=== PATIENT | female | born 1980 | race Caucasian/White ===

== ENCOUNTER → 2021-10-18 | Outpatient (CLI) | payer SELFPAY ==
--- NOTE | 2021-10-19 08:32 | KCIC ---
EXAM: ULTRASOUND PELVIS INDICATION: Reason: PELVIC PAIN x6 MONTHS RT>LT / Spl. Instructions: / History: . Last menstrual pe riod was 10/06/2021. COMPARISON: None available. TECHNIQUE: Transabdominal sonography was performed. FINDINGS: The uterus measures 13.7 x 6.5 x 5.5 cm. The endometrium measures 1 cm. Hypoechoic masses are seen, measuring up to 1.8 cm, within the myometrium anteriorly, likely fibroids. The right ovary measures 3.1 x 2.7 x 3.5 cm. The left ovary measures 2.1 x 2.6 x 2 cm. Flow seen to both ovaries. There is no free fluid. IMPRESSION: 1. Small hypoechoic masses within the uterus likely uterine fibroids. Electronically signed by: Fan Huff MD (10/19/2021 8:30 AM) [id number]
== END ==
LOC: KCIC US 14:26
PROVIDERS: ATTEND Nurse Practitioner Family
DX: N85.8 Other specified noninflammatory disorders of uterus (principal)
CPT/HCPCS: 76856

== ENCOUNTER → 2022-02-09 | Outpatient (CLI) | payer OTHER ==
[~2022-02-09] MED LIST: ASCO1TAB17 PO; BIOT25006 PO; LISI10TA16 PO; MULT-245 PO
--- NOTE | 2022-02-09 13:46 | EKG ---
[facility] [address] [place] [address] Test Date: 2022-02-09 Test Time: 13:32:54 Pat Name: YAMILKA OLIVO Department: Room: Gender: F Commercial Insurance Underwriter: : 1980 Requested By: JAIDEN BENAVIDEZ Order Number: [id number] Reading MD: Veto Mckeon MD Measurements Intervals Graham Rate: 87 P: 44 MT: 154 QRS: 15 QRSD: 84 T: 23 QT: 366 QTc: 446 Interpretive Statements SINUS RHYTHM Electronically Signed On 02-13-2022 6:53:18 CDT by Veto Mckeon MD
[2022-02-09 13:47] LABS: BASO # 0.1 x10^3/uL (0.0-0.2); BASO % 1 % (0-3); EOS # 0.1 x10^3/uL (0.0-0.7); EOS % 2 % (0-3); HEMATOCRIT 37.9 % (36.0-47.0); HEMOGLOBIN 12.2 g/dL (12.0-15.5); LYMPH # 2.2 x10^3/uL (1.0-4.8); LYMPH % 29 % (24-48); MEAN CORPUSCULAR HEMOGLOBIN 27 pg (25-35); MEAN CORPUSCULAR HGB CONC 32 g/dL (31-37); MEAN CORPUSCULAR VOLUME 85 fL (79-100); MONO # 0.5 x10^3/uL (0.0-1.1); MONO % 7 % (0-9); NEUT # 4.7 x10^3/uL (1.8-7.7); NEUT % 62 % (31-73); PLATELET COUNT 211 x10^3/uL (140-400); RED BLOOD COUNT 4.49 x10^6/uL (3.50-5.40); RED CELL DISTRIBUTION WIDTH 13.4 % (11.5-14.5); WHITE BLOOD COUNT 7.5 x10^3/uL (4.0-11.0)
[2022-02-09 14:06] LABS: ALBUMIN 3.8 g/dL (3.4-5.0); ALBUMIN/GLOBULIN RATIO 1.1 (1.0-1.7); CALCIUM 8.6 mg/dL (8.5-10.1); CREATININE 0.9 mg/dL (0.6-1.0); GFR 68.3; POTASSIUM 3.7 mmol/L (3.5-5.1); TOTAL BILIRUBIN 0.3 mg/dL (0.2-1.0); TOTAL PROTEIN 7.4 g/dL (6.4-8.2)
--- NOTE | 2022-02-09 14:36 | RAD ---
XR CHEST 2V History: Preoperative examination. Comparison: None. Findings: No consolidation or pleural effusion. Normal heart size. No pneumothorax. Impression: 1. No acute cardiopulmonary process. Electronically signed by: Rafael Dela Cruz DO (02/09/2022 2:34 PM) [id number]
[2022-02-09 15:01] LABS: BACTERIA,URINE 0 /HPF (0-FEW); RBC,URINE 0 /HPF (0-2); WBC,URINE 0 /HPF (0-4)
== END ==
LOC: SURGPAT 09:54
PROVIDERS: ATTEND Obstetrics & Gynecology
DX: Z01.818 Encounter for other preprocedural examination (principal); I10 Essential (primary) hypertension
CPT/HCPCS: 36415; 71046; 80053; 81001; 85025; 93005

== ENCOUNTER 2022-02-14 06:06 | Observation (INO) | payer OTHER ==
[2022-02-12 13:59] VITALS: BP 143/70
[~2022-02-14] VITALS: Ht 162.6 cm; Wt 78.3 kg
[2022-02-14] VITALS (10 sets, daily range): BP systolic 116–162; BP diastolic 72–88
[~2022-02-14 06:06] MED LIST changes: +CLINDAMYCIN 900MG PREMIX 50 ML IV PRN; +HYDROmorphone 2 MG/ML INJ. IVP PRN; +IV RINGERS,LACTATED 1000ML 1,000 ML IV SCH; +MORPHINE SULFATE 2 MG/ML INJ. IVP PRN; +PROCHLORPERAZINE 10 MG/2 ML VIAL. IVP PRN; +fentaNYL PF VIAL 100 MCG/2 ML VIAL IVP PRN
[2022-02-14] MEDS ORDERED: fentaNYL PF VIAL 100 MCG/2 ML VIAL ONE (06:54)
[2022-02-14] MEDS ORDERED: DEXAMETHASONE SOD PHOS 4 MG/ML VIAL ONE (06:54)
[2022-02-14] MEDS ORDERED: MIDAZOLAM HCL/PF 2 MG/2 ML VIAL. ONE (06:54)
[2022-02-14] MEDS ORDERED: PROPOFOL 10 MG/ML (20ML) VIAL. IV ONE (06:54)
[2022-02-14] MEDS ORDERED: LIDOCAINE 2% PF 5 ML VIAL. ONE (06:54)
[2022-02-14] MEDS ORDERED: ONDANSETRON PF 4 MG/2 ML VIAL. ONE (06:54)
[2022-02-14] MEDS ORDERED: SEVOFLURANE > 120 MINUTES. IH ONE (06:54)
[2022-02-14] MEDS ORDERED: ROCURONIUM 50 MG/5 ML VIAL. ONE (06:55)
[2022-02-14] MEDS ORDERED: NEOSTIGMINE METHYLSULFATE 5 MG/5 ML SYRINGE. ONE (06:55)
[2022-02-14] MEDS ORDERED: GLYCOPYRROLATE 1 MG/5 ML VIAL. ONE (06:55)
[2022-02-14] MEDS ORDERED: INDIGOTINDISULFONATE SODIUM 40 MG/5 ML AMPUL. ONE (07:25)
[2022-02-14] MEDS ORDERED: BUPIVACAINE-EPI 0.25%-1:200000 MPF 30 ML VIAL. ONE (07:25)
[2022-02-14] MEDS ORDERED: ESTROGENS, CONJ VAGINAL CREAM 30GM TUBE. ONE (07:25)
[2022-02-14] MEDS ORDERED: diphenhydrAMINE 50 MG/ML VIAL ONE (08:00)
[2022-02-14] MEDS ORDERED: KETAMINE HCL IN NACL, ISO-OSM 50 MG/5 ML SYRINGE ONE (08:14)
[2022-02-14] MEDS ORDERED: HYDROmorphone 2 MG/ML INJ. ONE (09:33)
[2022-02-14] MEDS ORDERED: KETOROLAC 30 MG/ML VIAL. ONE (09:36)
[2022-02-14] MEDS ORDERED: CALCIUM CARBONATE 500 MG TAB.CHEW PO PRN (10:00)
[2022-02-14] MEDS ORDERED: ONDANSETRON PF 4 MG/2 ML VIAL. IV PRN (10:00)
[2022-02-14] MEDS ORDERED: diphenhydrAMINE 50 MG/ML VIAL IV PRN (10:00)
[2022-02-14] MEDS ORDERED: NALOXONE 0.4 MG/ML VIAL. IV PRN (10:00)
[2022-02-14] MEDS ORDERED: MAGNESIUM HYDROXIDE 2,400 MG/30 ML ORAL.SUSP. PO PRN (10:00)
[2022-02-14] MEDS ORDERED: SIMETHICONE 80 MG TAB.CHEW PO PRN (10:00)
[2022-02-14] MEDS ORDERED: LACTULOSE 20 GM/30 ML SOLUTION. PO PRN (10:00)
[2022-02-14] MEDS ORDERED: 0.9 % SODIUM CHLORIDE 10 ML DISP.SYRIN. IV PRN (10:00)
[2022-02-14] MEDS ORDERED: ZOLPIDEM 5 MG TABLET. PO PRN (10:00)
[2022-02-14] MEDS ORDERED: MAG HYDROX/ALUMINUM HYD/SIMETH 30 ML ORAL.SUSP PO PRN (10:00)
[2022-02-14] MEDS ORDERED: diphenhydrAMINE HCL 25 MG CAPSULE PO PRN (10:00)
--- NOTE | 2022-02-14 10:10 | PDOC4 ---
BRIEF OPERATIVE NOTE Date: Feb 14, 2022 Pre-Op Diagnosis menorrhagia, enlarged fibroid uterus, pelvic pain on right side Post-Op Diagnosis same Procedure Performed LAVH/right ooph (prior salpingectomy on both sides) Surgeon Dr. Kaylyn Carmona Objective C Developer PEPE Youssef Anesthesiologist Dr. Vasquez Anesthesia Type: General Blood Loss 100cc IV Fluid 1200cc Urine Output 100cc clear via barone Specimens Obtained cervix, uterus, fibroid, right ovary Findings enlarged fibroid uterus, fibroid off left side of uterus, normal left ovary, cyst on right ovary, normal appendix, grossly normal bowel Complications none Operative Note [id number] KAYLYN CARMONA MD Feb 14, 2022 10:10
--- NOTE | 2022-02-14 11:22 | OP ---
DATE OF SURGERY: 02/14/2022 PREOPERATIVE DIAGNOSES: Enlarged fibroid uterus, menorrhagia and pelvic pain on the right side. POSTOPERATIVE DIAGNOSES: Enlarged fibroid uterus, menorrhagia and pelvic pain on the right side. PROCEDURE: Laparoscopic-assisted vaginal hysterectomy, right oophorectomy. She had had a prior salpingectomy with her tubal on both sides. SURGEON: Kaylyn Carmona MD PACKING LINE WORKER: PEPE Jara. ANESTHESIOLOGIST: Dr. Vasquez. ANESTHESIA: General. BLOOD LOSS: 100 mL. URINE OUTPUT: 100 mL clear via Contreras catheter. IV FLUIDS: 1200 mL of crystalloid. SPECIMENS: Cervix, uterus, fibroid, right ovary. FINDINGS: An enlarged fibroid uterus, a fibroid coming off the left side of the uterus, normal left ovary, no tubes on either side, cyst on the right ovary, grossly normal appendix and bowel. COMPLICATIONS: None. No significant adhesive disease. COMPLICATIONS: None. DESCRIPTION OF PROCEDURE: This patient was taken to the operating room where general anesthesia was placed. The patient was placed in dorsal lithotomy position in [facility]. The patient's abdomen and vagina were both prepped and draped in the normal sterile fashion and a Contreras catheter had been inserted under sterile technique. Upon my arrival, a timeout was performed. Once everyone agreed on the patient, the site, the procedure, the antibiotics, the procedure was initiated. A bivalve speculum was placed in the patient's vagina. A single-tooth tenaculum was used to grasp the anterior lip of the cervix. A 10 mL of local 0.25% with epinephrine was placed in the cervix circumferentially for both hemodissection and hemostatic purposes later. The Valtchev uterine manipulator was placed through the endocervical os, locked on the single tooth tenaculum and the bivalve speculum was then removed. Top gloves were discarded and changed. Attention was then turned to the abdomen where a supraumbilical skin incision was made with the scalpel, a curved Amanda was used to dissect through the subcuticular layer to the fascia. The 5 mm Visiport was used to directly enter the abdominal cavity. Opening patient pressure was 2-3 mmHg. Carbon dioxide gas was used to then appropriately insufflate the abdominal cavity to maintain a pressure of 15 mmHg. Overhead lights were dimmed and the patient was placed in Trendelenburg position. At this point, there was no significant adhesive disease, so after transilluminating the abdominal wall, finding an area clear of any vasculature, making a small incision, right and left lower quadrant ports were placed under direct visualization, 4 to 5 mL of air was placed in the trocar cuff. The camera was moved laterally to look at the umbilical port, make sure it was in and it was and it was also insufflated with the 4-5 mL of air. Camera was moved back to the midline. No tubes were there. She must have had a prior salpingectomy as her form of tubal. Right ovary was elevated. The ureter could be seen coursing low in the pelvis, right ovary had a small cyst on it. The patient did want it out, so, crossing the right infundibulopelvic ligament, cauterizing and cutting it, going through the right round ligament and then the left side, she wished to keep the ovary as it looked good, so we crossed the left round ligament first and then the left uterosacral leaving the normal left ovary and again the ureter could be seen, peristalsing low in the pelvis with the laparoscope, so, crossing the left uteroovarian pedicle leaving the normal left ovary per patient request. The bladder flap was elevated with a curved [place] grasper and the monopolar hook was used to go across and create the bladder flap sharply. It did come down very nicely, getting the uterine vessels on the left. There was a fibroid right there, so I had to go inside the fibroid and hugged the uterus, so the fibroid was outside, but it peeled right out, I placed it in the posterior cul-de-sac, so we could take it out later and then right side, again, the ovary had been taken on the right per patient request crossing the right round ligament and then going down and meeting that bladder flap anteriorly, making sure it was down, getting the vessels on the right side as well. The uterus was blanched. It was clear posteriorly of any adhesions. We were down and completely on the left side down to the uterosacral, going posteriorly and hugging the posterior uterus through the cardinal and broad ligaments on the right side as well. Once this was done, all instruments were removed from the abdomen and attention was turned vaginally. Overhead lights were placed back on. The patient was taken out of Trendelenburg. The single tooth and Valtchev were removed. A short weighted speculum was placed in the patient's vagina. Thyroid Teodora clamps were placed on the anterior and posterior lips of the cervix respectively. A scalpel was used to make a circumferential incision in the cervix. An open Ray-Shwetha 4 x 4 was used to gently push up the anterior bladder peritoneum. The anterior cul-de-sac was digitally and bluntly entered. The 4 x 4 was removed and the curved Kanab was placed in the anterior cul-de-sac. The cervix was elevated and the posterior cul-de-sac was sharply entered with curved Arcos scissors. A #0 Vicryl stitch was used to secure the posterior peritoneum here to the vaginal cuff, was tagged with a curved Amanda clamp. The needle was cut and passed off. The short weighted speculum was removed and replaced with the long weighted Ace speculum in the posterior cul-de-sac. Curved Dinora clamps x 2 were placed on the left uterosacral ligament where they were doubly clamped with curved Heaneys, cut with curved Arcos scissors and suture ligated x 2 with 0 Vicryl. Second one was taken through the vaginal cuff, securing uterosacral ligament to the vaginal cuff, tagging it with a straight Amanda clamp and cutting and passing the needle off. This was done exactly the same on the right side, double clamping the uterosacrals with curved Dinora's, cutting with curved Arcos scissors, suture ligating x 2 with 0 Vicryl, taking the second one through the vaginal cuff, tagging it with a straight Amanda clamp and cutting and passing the needle off. On the left side, we were much lower. I was able to get the right angle clamp around the remaining pedicle and the vaginal LigaSure was used to cauterize and cut the remaining pedicle and it was completely free. I took another bite on the patient's right side with the vaginal LigaSure and then I was able to get the curved right angle clamp around the remaining pedicle and the vaginal LigaSure was used to cauterize and cut it as well. Once everything was done, cervix, uterus, right ovary were delivered in total and passed off for permanent pathology. Single fibroid that was taken off the left side was found in the posterior cul-de-sac. It was also passed off and sent with the specimen. A sponge stick was used to examine the pedicles. There was some slight bleeding from the left side, it was grasped with a burlisher and going behind it, cauterizing with the vaginal LigaSure with excellent results. There was no active bleeding from any of the cuff sites anymore. I did put a couple of interrupted stitches in the posterior cuff for hemostasis and then it was dry, so I removed the long weighted Ace speculum, was removed and the short weighted vaginal speculum was replaced in the vagina. Thai and a long Allis was used to grasp the anterior bladder peritoneum and 2-0 Vicryl was taken through the anterior bladder peritoneum, left uterosacral ligament, posterior peritoneum and right uterosacral ligament, thus closing the peritoneum in a pursestring like fashion. Once this was done, the right and left uterosacral tags were clipped. The cuff was closed in an anterior to posterior running locked fashion with a full length 2-0 Vicryl and tied to the posterior cuff tag. The cuff was hemostatic and looked great. All instruments were correct x 2 by OR personnel before going above. All gloves were discarded and changed and attention was turned back above for a second look. Overhead lights were dimmed. The patient was placed back in Trendelenburg. Copious irrigation revealed hemostasis. Tisseel was placed over the pedicles. The 4-5 mL of air was taken out of the trocar cuff, reexamining it after placing Tisseel. It remained hemostatic, so the right and left lower quadrant ports were taken out under direct visualization. Gas was released from that umbilical port. All 3 port sites were closed with 4-0 nylon and injected with local at the end. The patient tolerated the procedure well. There were no complications. All counts were correct by OR personnel. The patient was awakened from anesthesia and brought to recovery room in stable condition. CL/RADHA DR: Hannah TID: [id number]
[2022-02-14] MEDS: MORPHINE SULFATE 2 MG/ML INJ. IV PRN ×2 (12:50→23:23)
[2022-02-14] MEDS: HYDROcodone/APAP 5/325MG 1 TAB TABLET PO PRN ×2 (15:06→15:29)
[2022-02-14] MEDS: oxyCODONE/APAP 5/325 1 TAB TABLET PO PRN (20:32)
--- NOTE | 2022-02-14 23:20 | NUR ---
Pt complains of breakthrough pain, that feels like pulling or burning. Pain is rated at a 9. She also complains about an increase in bleeding when she went to the bathroom to urinate. Patient flushed toilet so RN did not observe. No blood on pad. Meds administered for pain.
[2022-02-15 00:46] VITALS: BP 138/83
[2022-02-15] MEDS: oxyCODONE/APAP 5/325 1 TAB TABLET PO PRN ×5 (00:50→18:41)
[2022-02-15 05:57] VITALS: BP 130/76
[2022-02-15 08:00] VITALS: BP 98/61
[2022-02-15 08:02] LABS: HEMATOCRIT 34.5 % (36.0-47.0); HEMOGLOBIN 11.1 g/dL (12.0-15.5); RED BLOOD COUNT 4.06 x10^6/uL (3.50-5.40); RED CELL DISTRIBUTION WIDTH 13.5 % (11.5-14.5); WHITE BLOOD COUNT 10.6 x10^3/uL (4.0-11.0)
[2022-02-15 08:31] LABS: CALCIUM 8.4 mg/dL (8.5-10.1); CREATININE 0.7 mg/dL (0.6-1.0); GFR 91.3; POTASSIUM 3.9 mmol/L (3.5-5.1)
--- NOTE | 2022-02-15 10:03 | PDOC3 ---
Discharge Summary Visit Information Date of Admission: Feb 14, 2022 Date of Discharge: Feb 15, 2022 Final Diagnosis enlarged fibroid uterus, menorrhagia Brief Hospital Course Allergies Allergies Coded Allergies Type Severity Reaction Last Updated Verified Penicillins Allergy Intermediate Rash 02/14/22 Yes Vital Signs Vital Signs Date Time Temp Pulse Resp B/P (MAP) Pulse Ox O2 Delivery O2 Flow Rate FiO2 02/15/22 08:00 97.8 78 18 98/61 (73) 100 Room Air 97.8 02/14/22 10:15 6.0 Lab Results Laboratory Tests Test 02/14/22 06:22 02/15/22 07:40 Bedside Urine HCG, Qualitative Hcg negative (Negative) White Blood Count 10.6 x10^3/uL (4.0-11.0) Red Blood Count 4.06 x10^6/uL (3.50-5.40) Hemoglobin 11.1 g/dL (12.0-15.5) Hematocrit 34.5 % (36.0-47.0) Mean Corpuscular Volume 85 fL (79-100) Mean Corpuscular Hemoglobin 27 pg (25-35) Mean Corpuscular Hemoglobin Concent 32 g/dL (31-37) Red Cell Distribution Width 13.5 % (11.5-14.5) Platelet Count 200 x10^3/uL (140-400) Sodium Level 140 mmol/L (136-145) Potassium Level 3.9 mmol/L (3.5-5.1) Chloride Level 103 mmol/L (98-107) Carbon Dioxide Level 29 mmol/L (21-32) Anion Gap 8 (6-14) Blood Urea Nitrogen 9 mg/dL (7-20) Creatinine 0.7 mg/dL (0.6-1.0) Estimated GFR (Cockcroft-Gault) 91.3 Glucose Level 108 mg/dL (70-99) Calcium Level 8.4 mg/dL (8.5-10.1) Laboratory Tests Test 02/15/22 07:40 White Blood Count 10.6 x10^3/uL (4.0-11.0) Red Blood Count 4.06 x10^6/uL (3.50-5.40) Hemoglobin 11.1 g/dL (12.0-15.5) Hematocrit 34.5 % (36.0-47.0) Mean Corpuscular Volume 85 fL (79-100) Mean Corpuscular Hemoglobin 27 pg (25-35) Mean Corpuscular Hemoglobin Concent 32 g/dL (31-37) Red Cell Distribution Width 13.5 % (11.5-14.5) Platelet Count 200 x10^3/uL (140-400) Sodium Level 140 mmol/L (136-145) Potassium Level 3.9 mmol/L (3.5-5.1) Chloride Level 103 mmol/L (98-107) Carbon Dioxide Level 29 mmol/L (21-32) Anion Gap 8 (6-14) Blood Urea Nitrogen 9 mg/dL (7-20) Creatinine 0.7 mg/dL (0.6-1.0) Estimated GFR (Cockcroft-Gault) 91.3 Glucose Level 108 mg/dL (70-99) Calcium Level 8.4 mg/dL (8.5-10.1) Brief Hospital Course Ms. Mena is a 41 old female who presented with menorrhagia and enlarged fib roid uterus. She underwent LAVH/RSO yesterday without complications. She has had an unremarkable postoperative course. she is voiding without catheter, tolerating PO, ambulating well and desiring to go home. Assessment Assessment POD#1 s/p LAVH/RSO Routine PO care d/c to home later today NPV x 6 weeks light/limited activity x 2 wks keep scheduled follow up already has pain meds filled at home NO driving while on narcotics or for first week at home at least ok for OTC ibuprofen as needed also if no contraindication call or return sooner for any other questions or concerns not limited to but including pain unrelieved with pain meds, increased or unexplained vb or T>100.4 Discharge Information Condition at Discharge: Stable Follow Up: Weeks Disposition/Orders: D/C to Home Scheduled Ascorbic Acid/Elderberry Fruit (Elderberry-Vit C 50-100 mg Chw) 1 Each Tab.chew, 1 EACH PO DAILY for , (Reported) Entered as Reported by: Davide Lorenzana on 02/09/22 1160 Last Taken: Unknown Dose on 02/07/22 Last Action: Last Taken Edited on 02/14/22 0626 by Davide Lorenzana Biotin (Biotin) 2,500 Mcg Capsule, 1 CAP PO DAILY for for 30 Days, #30 Ref 0 (Reported) Entered as Reported by: Davide Lorenzana on 02/09/221352 Last Taken: Unknown Dose on 02/07/22 Last Action: Last Taken Edited on 02/14/22625 by Davide Lorenzana Lisinopril (Lisinopril) 10 Mg Tablet, 10 MG PO DAILY for FOR HYPERTENSION, #30 Ref 0 (Reported) Entered as Reported by: Davide Lorenzana on 02/09/221352 Last Taken: Unknown Dose on 02/13/22 Last Action: Last Taken Edited on 02/14/22625 by Davide Lorenzana Multivitamin (Multi Vitamin Daily) 1 Each Tablet, 1 TAB PO DAILY for for 30 Days, #30 Ref 0 (Reported) Entered as Reported by: Davide Lorenzana on 02/09/221352 Last Taken: Unknown Dose on 02/07/22 Last Action: Last Taken Edited on 02/14/22625 by Davide Lorenzana Justicifation of Admission Dx: Justifications for Admission: Justification of Admission Dx: Yes JAIDEN BENAVIDEZ MD Feb 15, 2022 10:03
--- NOTE | 2022-02-15 10:05 | PDOC ---
SURGICAL PROGRESS NOTE DATE: 02/15/22 TIME: 10:04 Subjective Moving around slowly, some gas pains in RUQ, scant VB today, voiding without catheter and tolerating PO Vital Signs Vital Signs Date Time Temp Pulse Resp B/P (MAP) Pulse Ox O2 Delivery O2 Flow Rate FiO2 02/15/22 08:00 97.8 78 18 98/61 (73) 100 Room Air 97.8 02/14/22 10:15 6.0 I&O Intake and Output0 02/15/22 07:00 Intake Total 1550 ml Output Total 300 ml Balance 1250 ml Intake IV Total 1550 ml Output Urine Total 200 ml Estimated Blood Loss 100 ml # Voids 1 PATIENT HAS A ARMENDARIZ: No General: Alert, Oriented X3, Cooperative, No acute distress HEENT: Atraumatic Heart: Regular rate Abdomen: Soft, No tenderness, Other (port sites c/d/i) Extremities: No clubbing, No cyanosis, No edema, No tenderness/swelling Skin: No rashes, No breakdown Neuro: Normal speech Psych/Mental Status: Mental status NL, Mood NL Labs Laboratory Tests Test 02/14/22 06:22 02/15/22 07:40 Bedside Urine HCG, Qualitative Hcg negative (Negative) White Blood Count 10.6 x10^3/uL (4.0-11.0) Red Blood Count 4.06 x10^6/uL (3.50-5.40) Hemoglobin 11.1 g/dL (12.0-15.5) Hematocrit 34.5 % (36.0-47.0) Mean Corpuscular Volume 85 fL (79-100) Mean Corpuscular Hemoglobin 27 pg (25-35) Mean Corpuscular Hemoglobin Concent 32 g/dL (31-37) Red Cell Distribution Width 13.5 % (11.5-14.5) Platelet Count 200 x10^3/uL (140-400) Sodium Level 140 mmol/L (136-145) Potassium Level 3.9 mmol/L (3.5-5.1) Chloride Level 103 mmol/L (98-107) Carbon Dioxide Level 29 mmol/L (21-32) Anion Gap 8 (6-14) Blood Urea Nitrogen 9 mg/dL (7-20) Creatinine 0.7 mg/dL (0.6-1.0) Estimated GFR (Cockcroft-Gault) 91.3 Glucose Level 108 mg/dL (70-99) Calcium Level 8.4 mg/dL (8.5-10.1) Laboratory Tests Test 02/15/22 07:40 White Blood Count 10.6 x10^3/uL (4.0-11.0) Red Blood Count 4.06 x10^6/uL (3.50-5.40) Hemoglobin 11.1 g/dL (12.0-15.5) Hematocrit 34.5 % (36.0-47.0) Mean Corpuscular Volume 85 fL (79-100) Mean Corpuscular Hemoglobin 27 pg (25-35) Mean Corpuscular Hemoglobin Concent 32 g/dL (31-37) Red Cell Distribution Width 13.5 % (11.5-14.5) Platelet Count 200 x10^3/uL (140-400) Sodium Level 140 mmol/L (136-145) Potassium Level 3.9 mmol/L (3.5-5.1) Chloride Level 103 mmol/L (98-107) Carbon Dioxide Level 29 mmol/L (21-32) Anion Gap 8 (6-14) Blood Urea Nitrogen 9 mg/dL (7-20) Creatinine 0.7 mg/dL (0.6-1.0) Estimated GFR (Cockcroft-Gault) 91.3 Glucose Level 108 mg/dL (70-99) Calcium Level 8.4 mg/dL (8.5-10.1) I have reviewed the following labs, vitals, nursing Cardiovascular: No pertinent hx Pulmonary: No pertinent hx GI: No pertinent hx Heme/Onc: No pertinent hx Psych: No pertinent hx Rheumatologic: No pertinent hx ENT: No pertinent hx Renal/: No pertinent hx Endocrine: No pertinent hx Dermatology: No pertinent hx Assessment/Plan POD#1 s/p LAVH/RSO Routine PO care d/c to home later today NPV x 6 weeks light/limited activity x 2 wks keep scheduled follow up already has pain meds filled at home NO driving while on narcotics or for first week at home at least ok for OTC ibuprofen as needed also if no contraindication call or return sooner for any other questions or concerns not limited to but including pain unrelieved with pain meds, increased or unexplained vb or T>100.4 Justicifation of Admission Dx: Justifications for Admission: Justification of Admission Dx: Yes JAIDEN BENAVIDEZ MD Feb 15, 2022 10:05
[2022-02-15] MEDS: IBUPROFEN 400 MG TABLET. PO PRN ×2 (10:54→18:40)
[2022-02-15] MEDS: DOCUSATE SODIUM 100 MG CAPSULE. PO SCH ×2 (11:29→18:40)
[2022-02-15 12:00] VITALS: BP 106/63
[2022-02-15 16:10] VITALS: BP 109/70
[2022-02-15 19:10] VITALS: BP 130/83
--- NOTE | 2022-02-16 17:07 | PATHOLOGY ---
[facility] Accession Number: [id number] . 01 Material submitted: . uterus - UTERUS, CERVIX, RIGHT OVARY . 01 Clinical history: . BLEEDING, FIBROIDS, PAIN LAVH . 02 Diagnosis: Uterus and ovary, laparoscopic assisted vaginal hysterectomy and right oophorectomy: - Leiomyomas, uterine corpus, multiple, subserosal and intramural (uterine weight 172 grams). - Leiomyoma, separate from uterus, measuring 2.1 cm in greatest dimension. - Mild chronic cervicitis with focal squamous metaplasia. - Nabothian cysts, cervix. - Proliferative endometrium. - Cystic follicles of ovary, multiple. (JPM/db; 02/16/2022) [facility] 02/16/2022 1530 Local . 02 Comment: There is no evidence of malignancy. (JPM/db; 02/16/2022) . 02 Electronically signed: . En Kelly MD, Pathologist NPI- [id number] . 01 Gross description: . Fixative: Formalin Labeled: Uterus, cervix, right ovary Specimen received: A previously opened, uterus with attached cervix and right ovary . Uterus weight: 172 g (without adnexa) Uterus: 11.5 cm from fundus to cervix, 6.5 cm from cornu to cornu and 5.3 cm from anterior to posterior Serosa: Pulido-pink, bosselated, smooth and glistening Cervix: 3.6 x 2.3 cm Ectocervix: Pulido-pink, centrally shaggy and disrupted, displaying extensive surgical artifact Cervical os: 1.0 cm, slightly gaping Endocervix: Pulido-pink, spongy, displaying a multiple, nabothian cysts ranging in size from 0.2-0.5 cm, in greatest dimension. Endocervical canal: 3.0 cm, displaying a herringbone pattern Endometrial cavity: 5.5 x 3.3 cm Endometrium: [place]-red, diffusely granular, measuring up to 0.2 cm in thickness Myometrium: Pulido-pink, vaguely trabecular, measuring up to 2.2 cm in thickness Lesions/abnormalities: There are multiple, pulido-white, ovoid, whorled, subserosal and intramural nodules in both the anterior and posterior aspects of the myometrium. The nodules range in size from 0.2-1.0 cm, in greatest dimension. Sectioning of the nodules reveals no discrete areas of necrosis, hemorrhage or calcifications. . Right ovary: 9 g, 3.6 x 2.2 x 2.0 cm Right ovary external appearance: Pulido-pink to yellow, focally hemorrhagic, bosselated, with no discrete excrescences Right ovary cut surface: Pulido-pink to white, focally hemorrhagic and cystic, with cysts ranging in size from 0.3-1.0 cm, in greatest dimension. The cystic cavities appear smooth, with no excrescences. . Also received in the specimen container is a separate, 2.0 x 1.7 x 1.4 cm, ovoid, pulido-white, nodule. Sectioning of the nodule reveals a pulido-white, whorled, solid, cut surfaces. . [employer] sections are submitted as follows: A1 anterior cervix A2 posterior cervix A3 anterior endomyometrium A4 posterior endomyometrium A5-A7 nodules, represented A8 separate nodule, represented A9-A12 ovary, represented ([facility]; 02/14/2022) [facility] 02/16/2022 [facility] . 02 Pathologist provided ICD-10: D25.2, D25.1, N72, N87.9, N88.8, N83.00 . 02 CPT . 654223 Specimen Comment: A courtesy copy of this report has been sent to [phone], [phone] Specimen Comment: [id number] Specimen Comment: Report sent to / DR ANGULO Performed at: 01 [facility] [address], [place] [id number] MD Brendan Flores MD Phone: [phone] Performed at: 02 [facility] [id number] MD En Kelly MD Phone: [phone]
== END 2022-02-15 19:10 | disposition home or self-care (01) ==
LOC: SURG 06:06 → 3 SO LND 09:57
PROVIDERS: ADMIT Obstetrics & Gynecology; ATTEND Obstetrics & Gynecology
DX: N92.0 Excessive and frequent menstruation with regular cycle (principal); R10.2 Pelvic and perineal pain; D25.9 Leiomyoma of uterus, unspecified; N83.201 Unspecified ovarian cyst, right side; Z90.721 Acquired absence of ovaries, unilateral; Z79.899 Other long term (current) drug therapy; Z98.890 Other specified postprocedural states
CPT/HCPCS: 36415; 58552; 80048; 81025; 85027; 86850; 86900; 86901; 88307; 96374; 96376; A4314; A4930; A6219; G0378; G0379; J1100; J1170; J1885; J1956; J2250; J2270; J2704; J2710; J3010; J3490; A4657; J1200; J2405